=== PATIENT | female | born 1970 | race Caucasian/White ===

== ENCOUNTER 2016-07-05 16:48 | Emergency (ER) | payer SELFPAY ==
[~2016-07-05] VITALS: Ht 172.7 cm; Wt 102.1 kg
[2016-07-05] MEDS ORDERED: KETOROLAC TROMETHAMINE INJ 60 MG/2 ML VIAL IM ONE (18:00)
[2016-07-05] MEDS ORDERED: KETOROLAC TROMETHAMINE INJ 30 MG/ML VIAL ONE (18:09)
[2016-07-05] MEDS ORDERED: IV NS 0.9% 1,000 ML BAG IV ONE (19:00)
[2016-07-05 19:07] LABS: BASOPHILS # (AUTO) 0.1 /CMM (0.0-0.2); BASOPHILS % (AUTO) 0.6 % (0.0-2.0); DIFF TOTAL % 100 %; EOSINOPHILS # (AUTO) 0.2 /CMM (0.0-0.7); EOSINOPHILS % (AUTO) 2.4 % (0.0-6.0); HEMATOCRIT 34 % (33-45); HEMOGLOBIN 11.8 g/dL (11.5-14.8); LYMPHOCYTES # (AUTO) 4.1 /CMM (0.8-4.8); LYMPHOCYTES % (AUTO) 44.7 % (20.0-44.0); MEAN CORPUSCULAR HEMOGLOBIN 28 PG (26.0-33.0); MEAN CORPUSCULAR HGB CONC 35 g/dl (31.0-36.0); MEAN CORPUSCULAR VOLUME 82 fL (82-100); MONOCYTES # (AUTO) 0.5 /CMM (0.1-1.30); NEUTROPHILS # (AUTO) 4.2 /CMM (1.8-8.9); NEUTROPHILS % (AUTO) 46.3 % (43.0-81.0); PLATELET COUNT (AUTO) 319 /CMM (150-450); RED BLOOD CELL COUNT(AUTO) 4.15 MIL/uL (4.0-5.2); WHITE BLOOD COUNT (AUTO) 9.1 K/uL (4.3-11.0)
[2016-07-05 19:21] LABS: INR 0.92 (0.87-1.13); PROTHROMBIN TIME 9.7 SECS (9.5-12.7)
[2016-07-05 19:23] LABS: ALANINE AMINOTRANSFERASE 21 U/L (12-78); ALBUMIN 3.3 g/dL (3.4-5.0); ANION GAP 12 (5-14); ASPARTATE AMINOTRANSFERASE 15 U/L (15-37); BILIRUBIN,DIRECT 0.1 mg/dL (0.0-0.2); BILIRUBIN,TOTAL 0.4 mg/dL (0.2-1.0); CALCIUM, SERUM 8.6 mg/dL (8.5-10.1); CARBON DIOXIDE 26 mmol/L (21-32); CHLORIDE 101 mmol/L (98-107); CREATININE 0.8 mg/dL (0.6-1.3); GFR 78 mL/min (>60); GLUCOSE 308 mg/dL (74-106); INDIRECT BILIRUBIN 0.3 mg/dL (0.0-1.1); POTASSIUM 3.8 mmol/L (3.5-5.1); SODIUM SERUM 135 mmol/L (136-145); TOTAL PROTEIN, SERUM 6.8 g/dL (6.4-8.2); UREA NITROGEN, BLOOD 12 mg/dL (7-18)
[2016-07-05 19:25] LABS: TROPONIN I < 0.017 ng/mL (0.00-0.056)
[2016-07-05] MEDS ORDERED: IV NS 0.9% 1,000 ML ONE (19:34)
[2016-07-05] MEDS ORDERED: IV SET PRIMARY 1 EA INFUS.SET MC ONE (19:34)
[2016-07-05 20:19] LABS: KETONES,URINE Negative (NEGATIVE); LEUKOCYTE ESTERASE ,URINE Negative (NEGATIVE)
[2016-07-05 20:21] LABS: ADD UA MICROSCOPIC YES
[2016-07-05 20:28] LABS: CANNABINOID, URINE NEGATIVE (NEGATIVE); PHENCYCLIDINE SCREEN,URINE NEGATIVE (NEGATIVE)
[2016-07-05 20:31] LABS: ADD URINE CULTURE NO; RBC,URINE 0-2 /HPF (0-2); WBC,URINE 0-2 /HPF (0-3)
[2016-07-06 05:46] VITALS: BP 124/68
== END 2016-07-06 04:45 | disposition home or self-care (01) ==
LOC: ER 16:52
DX: T40.4X5A Adverse effect of other synthetic narcotics, initial encounter (principal); G89.29 Other chronic pain; M54.5 Low back pain; Y92.9 Unspecified place or not applicable; R73.09 Other abnormal glucose
CPT/HCPCS: 36415; 70450; 71010; 80048; 80076; 80305; 81001; 82962; 84484; 85025; 85730; 93005; 96360; 96372; 99285; A4606; J1885; J7030; Z7610; 81000-TC

== ENCOUNTER 2017-03-19 10:48 | Emergency (ER) | payer MEDICAID ==
[~2017-03-19] VITALS: Ht 167.6 cm; Wt 99.8 kg
[2017-03-19 10:52] VITALS: BP 140/77
[2017-03-19] MEDS ORDERED: IBUPROFEN 600 MG TABLET PO ONE ×2 (11:00→11:02)
== END 2017-03-19 11:07 | disposition home or self-care (01) ==
LOC: ER 10:51
DX: M25.512 Pain in left shoulder (principal); E11.9 Type 2 diabetes mellitus without complications
CPT/HCPCS: 99282; A4606; Z7610

== ENCOUNTER 2017-06-04 08:22 | Emergency (ER) | payer MEDICAID ==
[~2017-06-04] VITALS: Ht 175.3 cm; Wt 104.3 kg
[2017-06-04 08:39] VITALS: BP 124/70
== END 2017-06-04 09:28 | disposition home or self-care (01) ==
LOC: ER 08:24
DX: M54.6 Pain in thoracic spine (principal); G89.29 Other chronic pain; E11.9 Type 2 diabetes mellitus without complications
CPT/HCPCS: A4606; Z7610